=== PATIENT | male | born 1970 | race Caucasian/White ===

== ENCOUNTER 2025-03-11 08:32 | Outpatient (OUT) | payer OTHER, SELFPAY ==
--- OUTSIDE RECORDS SUMMARY | 2025-03-11 08:38 | XMS_ITS | Clinical Summary ---
Author Organization [facility] Address [address] [place] [address], [address] [place] [address] Care Team Providers Care Newspaper Subscription Solicitor Name Role Phone Unavailable Primary Care Provider Unavailabl e Social History Tobacco Use Types Packs/Day Years Used Date Smoking Tobacco: Never Assessed Sex and Gender Information Value Date Recorded Sex Assigned at Not on file Legal Sex Male 12:38 AM EST Gender Identity Not on file Sexual Orientation Not on file Plan of Treatment Not on file
--- OUTSIDE RECORDS SUMMARY | 2025-03-11 08:38 | XMS_ITS | Encounter Summary ---
Author Organization [facility] Address [address] [place] [address] Phone Care Team Providers Care Certified Performance Technologist Name Role Phone Bryce Fuentes MD MPH Primary Care Pro vider Bryce Fuentes MD MPH Unavailable Encounter Details Date Type Department Care Team (Late st Contact Info) Description 08/31/2023 [facility] [address] [place] [address] Social History Tobacco Use Types Packs/Day Years Used Date Smoking Tobacco: Never Assessed Sex and Gender Information Value Date Recorded Sex Assigned at Not on file Legal Sex Male 6:04 PM EST Gender Identity Not on file Sexual Orientation Not on file documented as of this encounter Plan of Treatment Not on file documented as of this encounter Visit Diagnoses Not on filedocumented in this encounter Care Teams Certified Performance Technologist Relationship Specialty Start Date End Date Bryce Fuentes MD MPH PCP - General 04/08/22 Bryce Fuentes MD MPH [address] [facility], [address] [place] [address] PCP - [place] [facility] PCP 04/27/22 03/27/24 documented as of this encounter
--- OUTSIDE RECORDS SUMMARY | 2025-03-11 08:38 | XMS_ITS | Encounter Summary ---
Author Organization [facility] Address [address] [place] [address] Phone Care Team Providers Care Rigging Man Name Role Phone Bryce Fuentes MD MPH Primary Care Pro vider Encounter Details Date Type Department Care Team (Late st Contact Info) Description 07/31/2024 Patient Risk Score [facility] Care Management [address] [place] [phone] Social History Tobacco Use Types Packs/Day Years [...] on filedocumented in this encounter Care Teams Rigging Man Relationship Specialty Start Date End Date Bryce Fuentes MD MPH PCP - General 04/08/22 documented as of this encounter
--- OUTSIDE RECORDS SUMMARY | 2025-03-11 08:38 | XMS_ITS | Encounter Summary ---
Author Organization [facility] Address [address] [place] [address] Phone Care Team Providers Care Mixer And Blender Name Role Phone Bryce Fuentes MD MPH Primary Care Pro vider Encounter Details Date Type Department Care Team (Late st Contact Info) Description 04/30/2024 Patient Risk Score [facility] Care Management [address] [place] [phone] Social History Tobacco Use Types Packs/Day Years [...] on filedocumented in this encounter Care Teams Mixer And Blender Relationship Specialty Start Date End Date Bryce Fuentes MD MPH PCP - General 04/08/22 documented as of this encounter
--- OUTSIDE RECORDS SUMMARY | 2025-03-11 08:38 | XMS_ITS | Clinical Summary ---
Author Organization [facility] Address [address] [place] [address] Care Team Providers Care Picture Copyist Name Role Phone Tuan Parr MD Primary Care Provider Allergies No known active allergies Medications No known medications Encounters Date Type Department Care Team Description 01/26/2025 10:15 AM EDT Office Visit [facility] [address] [place] [address] Bernabe Marcelnio, IRENE Spondylosis of lumbar spine (Primary Dx); Lumbar radiculopathy 01/26/2025 Orders Only [facility] [address] [place] [address] Bernabe Marcelino NP Lumbar radiculopathy 01/26/2025 Bamboo flowsheet [facility] [address] [place] [phone] Bernabe Marcelino NP 01/26/2025 Travel 12/29/2024 3:00 PM EDT Office Visit [facility] [address] [place] [address] Bernabe Marcelino NP Primary osteoarthritis of right hip (Primary Dx); Spondylosis of lumbar spine; Greater trochanteric bursitis of right hip 12/29/2024 Bamboo flowsheet [facility] [address] [place] [phone] Bernabe Marcelino NP 12/29/2024 Travel from Last 3 Months Family History Medical History Relation Name Comments Diabetes Father Leukemia Father Asthma Mother Breast cancer Mother Diabetes Mother Hypertension Mother Relation Name Status Comments Father Mother Social History Tobacco Use Types Packs/Day Years Used Date Smoking Tobacco: Former Cigarettes Tobacco Cessation:Counseling Given: Not Answered Alcohol Use Standard Drinks/Week Comments Yes 0 (1 standard drink = 0.6 oz pur e alcohol) Sex and Gender Information Value Date Recorded Sex Assigned at Not on file Legal Sex Male 1:17 PM EDT Gender Identity Not on file Sexual Orientation Not on file Last Filed Vital Signs Vital Sign Reading Time Taken Comments Blood Pressure - - Pulse - - Temperature - - Respiratory Rate - - Oxygen Saturation - - Inhaled Oxygen Concentration - - Weight 188 kg (415 lb) 12/29/2024 2:54 PM EDT Height 177.8 cm (5' 10 ) 12/29/2024 2:54 PM EDT Body Mass Index 59.55 12/29/2024 2:54 PM EDT Plan of Treatment Health Maintenance Due Date Last Done Comments CT Colonography 1972 FIT-DNA 1972 FIT 1972 FOBT 1972 Sigmoidoscopy 1972 Influenza Vaccine (#1) 2025 Colonoscopy 12/27/2034 12/27/2024 Colorectal Cancer Screening 12/27/2034 Procedures Procedure Name Priority Date/Time Associated Diagnosis Comments CT ARTHROCENTESIS ASPIR&/INJ MAJOR JT/BURSA W/O US Routine 12/29/2024 3:31 PM EDT Primary osteoarthritis of right hip Greater trochanteric bursitis of right hip from Last 3 Months Results * CT ARTHROCENTESIS ASPIR&/INJ MAJOR JT/BURSA W/O US (12/29/2024 3:31 PM EDT) Narrative Bernabe Marcelino NP - 12/29/2024 3:31 PM EDT Bernabe Marcelino NP 12/29/2024 3:32 PM L Inj/Asp: R greater trochanteric bursa on 12/29/2024 3:31 PM Indications: pain Details: lateral approach Medications: 40 mg methylPREDNISolone acetate 40 MG/ML Site cleaned with isopropyl alcohol Consent was given by the patient. Bernabe Marcelino NP IN CLINIC/BEDSIDE ORDERABLES Fi nal Result from Last 3 Months Insurance Care Teams Picture Copyist Relationship Specialty Start Date End Date Tuan Parr MD [address] [place] [address] PCP - General Family Medicine 01/25/25
--- OUTSIDE RECORDS SUMMARY | 2025-03-11 08:38 | XMS_ITS | Clinical Summary ---
Author Organization [facility] Address [address] [place] [address] Phone Care Team Providers Care Scale Technician Name Role Phone Bryce Fuentes MD MPH Primary Care Pro vider Social History Tobacco Use Types Packs/Day Years Used Date Smoking Tobacco: Never Assessed Sex and Gender Information Value Date Recorded Sex Assigned at Not on file Legal Sex Male 6:04 PM EST Gender Identity Not on file Sexual Orientation Not on file Last Filed Vital Signs Vital Sign Reading Time Taken Comments Blood Pressure 110/80 09/27/2022 4:37 PM EST Pulse 88 09/27/2022 4:37 PM EST Temperature - - Respiratory Rate - - Oxygen Saturation 96% 09/27/2022 4:37 PM EST Inhaled Oxygen Concentration - - Weight 194 kg (427 lb 6.4 oz) 09/27/2022 4:37 PM EST Height 177.5 cm (5' 9.88 ) 09/27/2022 4:37 PM ES T Body Mass Index 61.53 09/27/2022 4:37 PM EST Plan of Treatment Health Maintenance Due Date Last Done Comments CT Colonography 1972 Colonoscopy 1972 Colorectal Cancer Screening 1972 FIT-DNA (Cologuard) 1972 FIT 1972 HIV Screening 1972 Sigmoidoscopy 1972 Yearly Adult Physical 1972 MMR Vaccines (1 of 1 - Stand cas series) 01/21/1973 Hepatitis C Screening 01/21/1990 Hepatitis B Vaccines (1 of 3 - 19+ 3-dose series) 01/21/1991 DTaP/Tdap/Td Vaccines (1 - Tdap) 01/21/1994 Pneumococcal Vaccine (1 of 1 - PCV) 01/21/2022 Zoster Vaccines (1 of 2) 01/21/2022 PSA Prostate Cancer Screening 04/17/2023 04/17/2022 COVID-19 Vaccine (1 - 2023-2 5 season) 2024 Influenza Vaccine (#1) 2025 Lipid Panel 04/17/2027 04/17/2022 HIB Vaccines Aged Out No longer eligi ble based on patient's age to complete this topic HPV Vaccines Aged Out No longer eligi ble based on patient's age to complete this topic Hepatitis A Vaccines Aged Out No long er eligible based on patient's age to complete this topic IPV Vaccines Aged Out No longer eligi ble based on patient's age to complete this topic Meningococcal Vaccine Aged Out No gwen mehnaz eligible based on patient's age to complete this topic Rotavirus Vaccines Aged Out No longer eligible based on patient's age to complete this topic Procedures Procedure Name Priority Date/Time Associated Diagnosis Comments LIPID PANEL Routine 04/17/2022 8:53 AM EDT PROSTATE SPECIFIC ANTIGEN, SCREEN Routine 04/17/2022 8:53 AM EDT from Last 3 Months or Most Recently Relevant to Health Maintenance Results * Prostate Specific Antigen, Screen (04/17/2022 8:53 AM EDT) Prostate Specific Antigen,Screen 1.26 0.00 - 4.00 ng/mL [facility] Comment: The FDA requires that the method used for PSA assay be reported to the physician. Values obtained with different assay methods must not be used interchangeably. This test was performed at [facility] using the [employer] PSA assay is a two-site immunoenzymatic sandwich assay. The assay is approved for measurement of prostate-specific antigen (PSA)in serum and may be used in conjunction with a digital rectal examination in men 50 years and older as an aid in detection of prostate cancer. 2-Fhdpx-vcmfvumwe inhibitors (e.g. Proscar, Finasteride, Avodart, Dutasteride and Hillary) for the treatment of BPH have been shown to lower PSA levels by an average of 50% after 6 months of treatment. 04/17/2022 8:53 AM EDT 04/17/2022 11:35 AM EDT us Bryce Fuentes MD MPH LAB BLOOD ORDERAB LES Final Result [facility] [address] [place] [address] * Lipid Panel (04/17/2022 8:53 AM EDT) Cholesterol 120 0 - 199 mg/dL [facility] Comment: . AGE DESIRABLE BORDERLINE HIGH HIGH 0-19 Y 0 - 169 170 - 199 >/= 200 20-24 Y 0 - 189 190 - 224 >/= 225 >24 Y 0 - 199 200 - 239 >/= 240 All ranges are based on fasting samples. Specific therapeutic targets will vary based on patient-specific cardiac risk. . Pediatric guidelines reference:Pediatrics 2011, 128(S5). Adult guidelines reference: NCEP ATPIII Guidelines, ALEXUS 2001, 258:2486-97 . Venipuncture immediately after or during the administration of Metamizole may lead to falsely low results. Testing should be performed immediately prior to Metamizole dosing. HDL 43.0 mg/dL [facility] Comment: . AGE VERY LOW LOW NORMAL HIGH 0-19 Y < 35 < 40 40-45 ---- 20-24 Y ---- < 40 >45 ---- >24 Y ---- < 40 40-60 >60 . Cholesterol/HDL Ratio 2.8 [facility] Comment: REF VALUES DESIRABLE < 3.4 HIGH RISK > 5.0 LDL 65 0 - 99 mg/dL [facility] Comment: . NEAR BORD AGE DESIRABLE OPTIMAL HIGH HIGH VERY HIGH 0-19 Y 0 - 109 --- 110-129 >/= 130 ---- 20-24 Y 0 - 119 --- 120-159 >/= 160 ---- >24 Y 0 - 99 100-129 130-159 160-189 >/=190 . VLDL 12 0 - 40 mg/dL [facility] Triglycerides 62 0 - 149 mg/dL [facility] Comment: . AGE DESIRABLE BORDERLINE HIGH HIGH VERY HIGH 0 D-90 D 19 - 174 ---- ---- ---- 91 D- 9 Y 0 - 74 75 - 99 >/= 100 ---- 10-19 Y 0 - 89 90 - 129 >/= 130 ---- 20-24 Y 0 - 114 115 - 149 >/= 150 ---- >24 Y 0 - 149 150 - 199 200- 499 >/= 500 . Venipuncture immediately after or during the administration of Metamizole may lead to falsely low results. Testing should be performed immediately prior to Metamizole dosing. 04/17/2022 8:53 AM EDT 04/17/2022 11:35 AM EDT us Bryce Fuentes MD MPH LAB BLOOD ORDERAB LES Final Result [facility] [address] [place] [address] from Last 3 Months or Most Recently Relevant to Health Maintenance Insurance Care Teams Scale Technician Relationship Specialty Start Date End Date Bryce Fuentes MD MPH PCP - General 04/08/22
--- OUTSIDE RECORDS SUMMARY | 2025-03-11 08:38 | XMS_ITS | Encounter Summary ---
Author Organization [facility] Address [address] [place] [address] Phone Care Team Providers Care Leno Sewer Name Role Phone Bryce Fuentes MD MPH Primary Care Pro vider Bryce Fuentes MD MPH Unavailable Encounter Details Date Type Department Care Team (Late st Contact Info) Description 02/27/2023 [facility] [address] [place] [address] Social History Tobacco Use Types [...] on filedocumented in this encounter Care Teams Leno Sewer Relationship Specialty Start Date End Date Bryce Fuentes MD MPH PCP - General 04/08/22 Bryce Fuentes MD MPH [address] [facility], [address] [place] [address] PCP - [place] [facility] PCP 04/27/22 03/27/24 documented as of this encounter
--- OUTSIDE RECORDS SUMMARY | 2025-03-11 08:38 | XMS_ITS | Encounter Summary ---
Author Organization [facility] Address [address] [place] [address] Phone Care Team Providers Care Manager Gift Name Role Phone Bryce Fuentes MD MPH Primary Care Pro vider Bryce Fuentes MD MPH Unavailable Encounter Details Date Type Department Care Team (Late st Contact Info) Description 11/28/2023 [facility] [address] [place] [address] Social History Tobacco Use Types [...] on filedocumented in this encounter Care Teams Manager Gift Relationship Specialty Start Date End Date Bryce Fuentes MD MPH PCP - General 04/08/22 Bryce Fuentes MD MPH [address] [facility], [address] [place] [address] PCP - [place] [facility] PCP 04/27/22 03/27/24 documented as of this encounter
--- OUTSIDE RECORDS SUMMARY | 2025-03-11 08:38 | XMS_ITS | Encounter Summary ---
Author Organization [facility] Address [address] [place] [address] Phone Care Team Providers Care Flaker Operator Name Role Phone Bryce Fuentes MD MPH Primary Care Pro vider Bryce Fuentes MD MPH Unavailable Encounter Details Date Type Department Care Team (Late st Contact Info) Description 12/30/2023 [facility] [address] [place] [address] Social History Tobacco Use Types [...] on filedocumented in this encounter Care Teams Flaker Operator Relationship Specialty Start Date End Date Bryce Fuentes MD MPH PCP - General 04/08/22 Bryce Fuentes MD MPH [address] [facility], [address] [place] [address] PCP - [place] [facility] PCP 04/27/22 03/27/24 documented as of this encounter
--- OUTSIDE RECORDS SUMMARY | 2025-03-11 08:38 | XMS_ITS | Encounter Summary ---
Author Organization [facility] Address [address] [place] [address] Phone Care Team Providers Care Documentation Improvement Specialist Name Role Phone Bryce Fuentes MD MPH Primary Care Pro vider Bryce Fuentes MD MPH Unavailable Encounter Details Date Type Department Care Team (Late st Contact Info) Description 01/29/2024 [facility] [address] [place] [address] Social History Tobacco Use Types [...] on filedocumented in this encounter Care Teams Documentation Improvement Specialist Relationship Specialty Start Date End Date Bryce Fuentes MD MPH PCP - General 04/08/22 Bryce Fuentes MD MPH [address] [facility], [address] [place] [address] PCP - [place] [facility] PCP 04/27/22 03/27/24 documented as of this encounter
--- OUTSIDE RECORDS SUMMARY | 2025-03-11 08:38 | XMS_ITS | Encounter Summary ---
Author Organization [facility] Address [address] [place] [address] Phone Care Team Providers Care Cardiovascular Surgical Tech Name Role Phone Bryce Fuentes MD MPH Primary Care Pro vider Bryce Fuentes MD MPH Unavailable Encounter Details Date Type Department Care Team (Late st Contact Info) Description 02/29/[address] [facility] [address] [place] [address] Social History Tobacco Use Types [...] on filedocumented in this encounter Care Teams Cardiovascular Surgical Tech Relationship Specialty Start Date End Date Bryce Fuentes MD MPH PCP - General 04/08/22 Bryce Fuentes MD MPH [address] [facility], [address] [place] [address] PCP - [place] [facility] PCP 04/27/22 03/27/24 documented as of this encounter
--- OUTSIDE RECORDS SUMMARY | 2025-03-11 08:38 | XMS_ITS | Encounter Summary ---
Author Organization [facility] Address [address] [place] [address] Phone Care Team Providers Care Manager Medicare Marketing Name Role Phone Bryce Fuentes MD MPH Primary Care Pro vider Bryce Fuentes MD MPH Unavailable Encounter Details Date Type Department Care Team (Late st Contact Info) Description 06/29/2023 [facility] [address] [place] [address] Social History Tobacco Use Types [...] filedocumented in this encounter Care Teams Manager Medicare Marketing Relationship Specialty Start Date End Date Bryce Fuentes MD MPH PCP - General 04/08/22 Bryce Fuentes MD MPH [address] [facility], [address] [place] [address] PCP - [place] [facility] PCP 04/27/22 03/27/24 documented as of this encounter
--- OUTSIDE RECORDS SUMMARY | 2025-03-11 08:38 | XMS_ITS | Encounter Summary ---
Author Organization [facility] Address [address] [place] [address] Care Team Providers Care Dado Operator Name Role Phone Tuan Parr MD Primary Care Provider [phone] Encounter Details Date Type Department Care Team (Late st Contact Info) Description 12/06/2024 Orders Only [facility] [address] [facility] [place] [address] Tuan Parr MD [address] [place] [address] Social History Tobacco Use Types Packs/Day Years Used Date Smoking Tobacco: Never Assessed Sex and Gender Information Value Date Recorded Sex Assigned at Not on file Legal Sex Male 1:17 PM EDT Gender Identity Not on file Sexual Orientation Not on file documented as of this encounter Plan of Treatment Not on file documented as of this encounter Procedures Procedure Name Priority Date/Time Associated Diagnosis Comments XR LUMBAR SPINE COMPLETE 4+ VIEWS Routine 12/06/2024 3:26 PM EDT XR HIP 2 OR 3 VW RIGHT Routine 12/06/2024 3:25 PM EDT documented in this encounter Results * XR lumbar spine complete 4+ views (12/06/2024 3:26 PM EDT) Anatomical Region Laterality Modality Spine, L-spine Radiographic Thalia ging us Tuan Parr MD IMG XR PROCEDURES Final Result * XR hip right 2 or 3 views (12/06/2024 3:25 PM EDT) Anatomical Region Laterality Modality Lower Extremities, Hip Right Radiograp hic Imaging us Tuan ROBERTSONG XR PROCEDURES Final Result documented in this encounter Visit Diagnoses Not on filedocumented in this encounter Care Teams Dado Operator Relationship Specialty Start Date End Date Tuan Parr MD [address] [place] [address] PCP - General Family Medicine 01/25/25 documented as of this encounter
--- OUTSIDE RECORDS SUMMARY | 2025-03-11 08:38 | XMS_ITS | Encounter Summary ---
Author Organization [facility] Address [address] [place] [address] Phone Care Team Providers Care Consular Officer Name Role Phone Bryce Fuentes MD MPH Primary Care Pro vider Bryce Fuentes MD MPH Unavailable Encounter Details Date Type Department Care Team (Late st Contact Info) Description 05/30/2023 [facility] [address] [place] [address] Social History Tobacco Use Types [...] on filedocumented in this encounter Care Teams Consular Officer Relationship Specialty Start Date End Date Bryce Fuentes MD MPH PCP - General 04/08/22 Bryce Fuentes MD MPH [address] [facility], [address] [place] [address] PCP - [place] [facility] PCP 04/27/22 03/27/24 documented as of this encounter
--- OUTSIDE RECORDS SUMMARY | 2025-03-11 08:38 | XMS_ITS | Encounter Summary ---
Author Organization [facility] Address [address] [place] [address] Phone Care Team Providers Care Hr Representative Name Role Phone Bryce Fuentes MD MPH Primary Care Pro vider Bryce Fuentes MD MPH Unavailable Encounter Details Date Type Department Care Team (Late st Contact Info) Description 10/30/2023 [facility] [address] [place] [address] Social History Tobacco Use Types [...] on filedocumented in this encounter Care Teams Hr Representative Relationship Specialty Start Date End Date Bryce Fuentes MD MPH PCP - General 04/08/22 Bryce Fuentes MD MPH [address] [facility], [address] [place] [address] PCP - [place] [facility] PCP 04/27/22 03/27/24 documented as of this encounter
--- OUTSIDE RECORDS SUMMARY | 2025-03-11 08:38 | XMS_ITS | Encounter Summary ---
Author Organization [facility] Address [address] [place] [address] Phone Care Team Providers Care Client Technical Professional Name Role Phone Bryce Fuentes MD MPH Primary Care Pro vider Bryce Fuentes MD MPH Unavailable Encounter Details Date Type Department Care Team (Late st Contact Info) Description 09/29/2023 [facility] [address] [place] [address] Social History Tobacco Use Types [...] on filedocumented in this encounter Care Teams Client Technical Professional Relationship Specialty Start Date End Date Bryce Fuentes MD MPH PCP - General 04/08/22 Bryce Fuentes MD MPH [address] [facility], [address] [place] [address] PCP - [place] [facility] PCP 04/27/22 03/27/24 documented as of this encounter
--- OUTSIDE RECORDS SUMMARY | 2025-03-11 08:38 | XMS_ITS | Encounter Summary ---
Author Organization [facility] Address [address] [place] [address] Phone Care Team Providers Care Gear Tooth Grinding Machine Operator Name Role Phone Bryce Fuentes MD MPH Primary Care Pro vider Encounter Details Date Type Department Care Team (Late st Contact Info) Description 03/31/2024 Patient Risk Score [facility] [address] [place] [phone] Social History Tobacco Use Types Packs/Day Years [...] on filedocumented in this encounter Care Teams Gear Tooth Grinding Machine Operator Relationship Specialty Start Date End Date Bryce Fuentes MD MPH PCP - General 04/08/22 documented as of this encounter
--- OUTSIDE RECORDS SUMMARY | 2025-03-11 08:38 | XMS_ITS | Encounter Summary ---
Author Organization [facility] Address [address] [place] [address] Phone Care Team Providers Care Fleshing Machine Operator Name Role Phone Bryce Fuentes MD MPH Primary Care Pro vider Encounter Details Date Type Department Care Team (Late st Contact Info) Description 06/30/2024 Patient Risk Score [facility] [address] [place] [phone] Social History Tobacco Use Types Packs/Day Years [...] on filedocumented in this encounter Care Teams Fleshing Machine Operator Relationship Specialty Start Date End Date Bryce Fuentes MD MPH PCP - General 04/08/22 documented as of this encounter
--- OUTSIDE RECORDS SUMMARY | 2025-03-11 08:38 | XMS_ITS | Encounter Summary ---
Author Organization [facility] Address [address] [place] [address] Phone Care Team Providers Care Inventory Clerk Name Role Phone Bryce Fuentes MD MPH Primary Care Pro vider Encounter Details Date Type Department Care Team (Late st Contact Info) Description 05/31/2024 Patient Risk Score [facility] [address] [place] [id number] Social History Tobacco Use Types Packs/Day Years [...] on filedocumented in this encounter Care Teams Inventory Clerk Relationship Specialty Start Date End Date Bryce Fuentes MD MPH PCP - General 04/08/22 documented as of this encounter
--- OUTSIDE RECORDS SUMMARY | 2025-03-11 08:39 | XMS_ITS | Encounter Summary ---
Author Organization [facility] Address [address] [place] [address] Phone Care Team Providers Care Speech Therapist Technician Name Role Phone Bryce Fuentes MD MPH Primary Care Pro vider Bryce Fuentes MD MPH Unavailable Encounter Details Date Type Department Care Team (Late st Contact Info) Description 03/30/2023 [facility] [address] [place] [address] Social History Tobacco Use Types [...] on filedocumented in this encounter Care Teams Speech Therapist Technician Relationship Specialty Start Date End Date Bryce Fuentes MD MPH PCP - General 04/08/22 Bryce Fuentes MD MPH [address] [facility], [address] [place] [address] PCP - [place] [facility] PCP 04/27/22 03/27/24 documented as of this encounter
--- OUTSIDE RECORDS SUMMARY | 2025-03-11 08:39 | XMS_ITS | Encounter Summary ---
Author Organization [facility] Address [address] [place] [address] Phone Care Team Providers Care Sonoscope Operator Name Role Phone Bryce Fuentes MD MPH Primary Care Pro vider Bryce Fuentes MD MPH Unavailable Encounter Details Date Type Department Care Team (Late st Contact Info) Description 07/30/2023 [facility] [address] [place] [address] Social History Tobacco Use Types [...] on filedocumented in this encounter Care Teams Sonoscope Operator Relationship Specialty Start Date End Date Bryce Fuentes MD MPH PCP - General 04/08/22 Bryce Fuentes MD MPH [address] [facility], [address] [place] [address] PCP - [place] [facility] PCP 04/27/22 03/27/24 documented as of this encounter
--- OUTSIDE RECORDS SUMMARY | 2025-03-11 08:39 | XMS_ITS | Encounter Summary ---
Author Organization [facility] Address [address] [place] [address] Phone Care Team Providers Care Access Tech Name Role Phone Bryce Fuentes MD MPH Primary Care Pro vider Bryce Fuentes MD MPH Unavailable Encounter Details Date Type Department Care Team (Late st Contact Info) Description 01/27/2023 Patient Risk Score [facility] Care Management [address] [place] [address] Social History Tobacco Use Types [...] on filedocumented in this encounter Care Teams Access Tech Relationship Specialty Start Date End Date Bryce Fuentes MD MPH PCP - General 04/08/22 Bryce Fuentes MD MPH [address] [facility], [address] [place] [address] PCP - [place] [facility] PCP 04/27/22 03/27/24 documented as of this encounter
--- NOTE | 2025-03-11 08:51 | MR_ITS ---
[address] [address] Patient Name: LUDIN DENNIS MRN: [id number] date: 1970 Sex: M Assigned Patient Location: MRI Current Patient Location: MRI Accession/Order Number: [id number] Exam Date: 03/11/2025 12:00 Report Date: 03/11/2025 12:08 At the request of: TERRY DESIR CNP Procedure: MR lumbar spine wo con MRI lumbar spine performed without contrast COMPARISON: None INDICATION: Chronic lumbar pain with radiculopathy, lumbar neuritis, right leg weakness FINDINGS: Lumbar vertebral heights maintained. Slightly diminished marrow signal can be seen with red marrow conversion or in the setting of anemia. Correlate with CBC recommended. Retrolisthesis L4-5 4 mm. Otherwise the lumbar vertebral heights, alignment and bone marrow signal is unremarkable. T12-L1: Disc desiccation. Facet arthropathy. Canal neural foramina patent. L1-2: Broad-based disc bulge with intermargin plate spurring. Mild facet arthropathy. Minimal foraminal narrowing. Mild canal narrowing. L2-3: Broad-based disc bulge with moderate facet arthropathy and trace facet joint effusion. Moderate right moderate severe left neural from narrowing. Canal is patent. L3-4: Broad-based disc bulge with moderate to severe facet arthropathy. Moderate to severe neural foraminal narrowing identified. Mild central canal stenosis. L4-5: Anterolisthesis likely caused by the advanced facet arthropathy this level. Moderate severe neural foraminal narrowing identified with encroachment on the exiting L4 nerve roots. There is encroachment right lateral recess likely moderate severe with likely mass effect on the right L5 nerve root. [id number] central canal stenosis. L5-S1: Disc desiccation with moderate facet arthropathy. Minimal foraminal narrowing. Canal is patent. 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 Moderate severe foraminal encroachment at L4-5 and right subarticular zone encroachment L4-5, correlate with right-sided and radiculopathy and possible left L4 radiculopathy. Impression dictated by: Madhu Theodore M.D. 03/11/2025 12:08 PM Dictation Location: [place] [id number] Electronically authenticated by: [id number] Y Date: 03/11/2025 12:08
== END 2025-03-11 08:33 | disposition home or self-care (01) ==
LOC: MRI 08:35
PROVIDERS: Visit Provider Nurse Practitioner Family
DX: M54.16 Radiculopathy, lumbar region (principal); M51.369 Other intervertebral disc degeneration, lumbar region without mention of lumbar back pain or lower extremity pain
CPT/HCPCS: 72148